=== PATIENT | female | born 1965 | race Asian ===

== ENCOUNTER → 2022-12-03 14:53 | Outpatient (CLI) | payer OTHER, SELFPAY ==
[2022-12-03 15:49] LABS: Influenza A - CEPHEID Flu A NEGATIVE (NEGATIVE); Influenza B - CEPHEID Flu B NEGATIVE (NEGATIVE); Respiratory Syncytial Virus Negative (Negative)
[2022-12-03 16:01] LABS: COVID-19 CEPHEID 4-PLEX PCR Negative (Negative)
== END ==
PROVIDERS: PCP Nurse Practitioner Family; Visit Provider Physician Assistant
DX: R05.9 Cough, unspecified (principal)
CPT/HCPCS: 0241U

== ENCOUNTER 2023-01-19 07:32 | Day surgery (SDC) | payer OTHER, SELFPAY ==
[2023-01-19 07:50] VITALS: BP 144/82; PULSE 79; RESP 16; TEMP 36.3; O2SAT 97; BMI 27.9
[2023-01-19] MEDS: LACTATED RINGERS 1,000 ML 120 ML IV (08:00)
--- NOTE | 2023-01-19 08:44 | PM.HP.1 ---
History of Present Illness History of Present Illness Date Patient Seen: 01/19/23 Time Patient Seen: 08:49 Chief complaint: Screening Colonoscopy Narrative: Had a colonoscopy about 7 years ago. No family history for colon cancer and no current symptoms. [facility] Social History household members: spouse Smoking Status: Never smoker alcohol intake: never Meds Home Medications and Allergies Home Medications Medication Instructions Recorded Confirmed Type amlodipine 5 mg tablet 5 mg PO DAILY 08/16/20 01/19/23 History atenolol 50 mg tablet 50 mg PO DAILY 08/16/20 01/19/23 History losartan 50 mg tablet 50 mg PO DAILY 08/16/20 01/19/23 History metformin 500 mg tablet 500 mg PO BID 08/16/20 01/19/23 History dulaglutide 0.75 mg/0.5 mL 0.75 mg SUBCUT diabetes mellitus 01/19/23 History subcutaneous pen injector (Trulicity) insulin glargine U-300 conc 300 22 unit SUBCUT DAILY 01/19/23 01/19/23 History unit/mL (1.5 mL) subcutaneous pen (Toujeo SoloStar U-300 Insulin) rosuvastatin 5 mg tablet 5 mg PO QPM 01/19/23 01/19/23 History Allergies Allergy/AdvReac Type Severity Reaction Status Date / Time No Known Drug Allergies Allergy Verified 01/19/23 07:46 Review of Systems Review of Systems ROS: Yes All systems reviewed with the patient and are negative except as otherwise documented Exam Vital Signs (past 8 hours): - 01/19/23 07:50 Temperature 97.4 F L Pulse Rate 79 Respiratory Rate 16 Blood Pressure 144/82 H Pulse Oximetry 97 Oxygen Delivery Method Room Air Oxygen Delivery Method Room Air Const General: cooperative and healthy appearing Nutritional Appearance: average body habitus HENMT Head: normocephalic and atraumatic Eyes General: appearance normal, both eyes and all related structures Sclera: normal sclerae Neck Neck: trachea midline Resp Effort & Inspection: normal respiratory effort and able to speak in complete sentences Cardio Rate: regular rate Rhythm: regular rhythm GI Palpation: soft and No tender Skin General: elasticity normal Neuro General: patient alert, patient awake and patient oriented x3 Cognition: normal cognition Psych Mental Status: mental status grossly normal Judgment: judgment good Assessment & Plan Assessment & Plan narrative: Colon cancer screening using colonoscopy with anesthesia Time Spent With Patient Time with patient: less than 30 minutes
--- NOTE | 2023-01-19 09:07 | PM.OP.COLON ---
Operative Date/Time/Diagnoses Date of procedure: 01/19/23 Time of procedure: 09:07 Pre-op diagnosis: Colon cancer screening Post-op diagnosis: same Procedure & Clinicians Study performed: Colonoscopy with anesthesia Same procedure as scheduled: Yes Indications: Colon cancer screening Surgeon: Sharmin Sanchez Procedure Notes Procedure in detail: Preop diagnosis: Colon cancer screening Postop diagnosis: Same Operative procedure: Colonoscopy with anesthesia Surgeon: Suzy Sanchez MD Findings: No diverticulosis, no polyps. Procedure: Patient placed in lateral position. Rectal exam performed showing normal tone no masses. Colonoscope inserted into the rectum and advanced to ileocecal valve with minimal difficulty. Insufflation extraction of the scope and the above findings. Retroflex was included in the rectum. Impression: Normal colonoscopy. No polyps, no diverticulosis Plan: Repeat colonoscopy in 10 years unless otherwise indicated by change in clinical condition Specimen(s): none sent Complications: none Post-procedure Recommendations: Colonoscopy in 10 years Follow up: as needed Disposition: PACU
[2023-01-19 09:10] VITALS: BP 98/68; PULSE 93; RESP 18; TEMP 36.4; O2SAT 92
[2023-01-19 09:15] VITALS: BP 98/64; PULSE 92; RESP 20; O2SAT 100
[2023-01-19 09:20] VITALS: BP 110/75; PULSE 84; RESP 20; O2SAT 92
[2023-01-19 09:30] VITALS: BP 121/76; PULSE 77; RESP 20; TEMP 36.4; O2SAT 98
== END 2023-01-19 09:38 | disposition home or self-care (01) ==
PROVIDERS: PCP Nurse Practitioner Family; Referring Provider Surgery; Visit Provider Surgery
PROC: 0DJD8ZZ Inspection of Lower Intestinal Tract, Via Natural or Artificial Opening Endoscopic (ICD-10-PCS; CPT 45378; principal; 2023-01-19 08:45)
DX: Z12.11 Encounter for screening for malignant neoplasm of colon (principal)
CPT/HCPCS: 45378; 82962

== ENCOUNTER → 2024-01-26 13:32 | Outpatient (CLI) | payer OTHER, SELFPAY ==
[2024-01-26 14:22] LABS: Influenza A - CEPHEID Flu A NEGATIVE (NEGATIVE); Influenza B - CEPHEID Flu B NEGATIVE (NEGATIVE); Respiratory Syncytial Virus Negative (Negative)
[2024-01-26 14:54] LABS: COVID-19 CEPHEID 4-PLEX PCR POSITIVE (Negative)
== END ==
PROVIDERS: PCP Nurse Practitioner Family; Visit Provider Nurse Practitioner Family
DX: R05.1 Acute cough (principal); J02.9 Acute pharyngitis, unspecified
CPT/HCPCS: 0241U; 87070

== ENCOUNTER → 2024-01-26 13:58 | Outpatient (CLI) | payer OTHER, SELFPAY ==
--- NOTE | 2024-01-26 14:01 | DI.RAD.S_ITS ---
PROCEDURE: XR CHEST 2V INDICATIONS: Cough TECHNIQUE: 2 views of the chest were acquired. COMPARISON: None. FINDINGS: Surgical changes and devices: None. Lungs and pleura: Lungs are clear. No pleural effusions or pneumothorax. Mediastinum: Mediastinal contours are normal. Heart size is normal. Bones and chest wall: No suspicious bony abnormalities. Soft tissues appear unremarkable. IMPRESSION: No acute cardiopulmonary abnormalities or focal consolidation. Dictated by: Paolo Mojica M.D. on 01/26/2024 at 15:21 Approved by: Paolo Mojica M.D. on 01/26/2024 at 15:21
== END ==
LOC: RAD 14:00
PROVIDERS: PCP Nurse Practitioner Family; Referring Provider Nurse Practitioner Family; Visit Provider Nurse Practitioner Family
DX: J02.9 Acute pharyngitis, unspecified (principal); R05.1 Acute cough
CPT/HCPCS: 0241U; 71046; 87070